=== PATIENT | female | born 2000 | race Caucasian/White ===

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

== ENCOUNTER 2024-06-06 09:12 | Emergency (ER) | payer OTHER ==
[~2024-06-06] VITALS: Ht 165.1 cm; Wt 72.6 kg
[~2024-06-06 09:12] MED LIST changes: +FOLIC ACID0.8 M1 PO; +PEPCID20 MG PO; +PROTONIX20 MG PO
[2024-06-06] MEDS ORDERED: ZETIA10 MG PO (09:46)
[2024-06-06 10:30] LABS: HEMATOCRIT 36.6 % (36.0-45.00); HEMOGLOBIN 12.9 g/dL (12.0-15.00); MEAN CELL VOLUME 87.8 fL (80.00-100.00); MEAN CORPUSCULAR HEMOGLOBIN 30.9 pg (27.00-32.0); MEAN CORPUSCULAR HGB CONC 35.2 g/dl (32.0-36.0); PLATELET COUNT 216 K/uL (150-450); RED BLOOD COUNT 4.17 M/uL (4.00-6.00); RED CELL DISTRIBUTION WIDTH 13.5 % (11.5-14.5)
[2024-06-06 10:59] LABS: URINE APPEARANCE Clear; URINE BILIRRUBIN Negative (NEGATIVE); URINE BLOOD Large; URINE COLOR Yellow; URINE GLUCOSE Negative (NEGATIVE); URINE LEUKOCYTE Large; URINE NITRATE Negative; URINE PROTEIN Negative (NEGATIVE); URINE UROBILINOGEN 0.2 E.U./dl
[2024-06-06 11:10] LABS: URINE BACTERIA 2303.1 uL (0.0-1933); URINE EPITHELIAL CELLS 57.5 uL (0.0-38.8); URINE RBC 3.3 uL (0.0-20.8); URINE WBC 149.3 uL (0.0-23.2)
[2024-06-06] MEDS ORDERED: RHOGAM ULTR1500 UNIT IM (13:20)
== END 2024-06-06 13:57 | disposition home or self-care (01) ==
LOC: ER 09:13
PROVIDERS: General Practice
DX: O20.8 Other hemorrhage in early pregnancy (principal); Z3A.09 9 weeks gestation of pregnancy